=== PATIENT | female | born 1955 | race Caucasian/White ===

== ENCOUNTER 2019-02-04 15:47 | Emergency (ER) | payer MEDICARE, MEDICAID ==
[~2019-02-04] VITALS: Ht 167.6 cm; Wt 80.0 kg
[~2019-02-04 15:47] MED LIST: ATOM100C MT; BACL20TA MT; BUDE6HFA INH; CLON2TAB21 PO; FLONASE; IBUP-2030 PO; LASIX PO; LINA145C PO; LITH300C3 PO; METOPROLOL PO; ONDA4TAB5 MT; POLY15DR31 EACHEYE; PREG20SO PO; PROT40 MT; SERT100T MT
[2019-02-04 18:30] LABS: BASOPHILS % 0.6 % (0.0-2.0); EOSINOPHILS % 4.1 % (0.0-5.0); HEMATOCRIT. 30.3 % (36.0-48.0); HEMOGLOBIN. 10.4 g/dL (12.0-16.0); LYMPHOCYTES % 22.5 % (20.0-50.0); MEAN CORPUSCULAR HEMOGLOBIN 31.2 pg (28.0-32.0); MEAN CORPUSCULAR VOLUME 91.1 fL (81.0-99.0); MEAN PLATELET VOLUME 7.9 fl (7.4-10.4); MONOCYTES % 11.4 % (2.0-8.0); NEUTROPHILS % 61.4 % (40.0-76.0); PLATELET 243 x1000/uL (130-400); RED BLOOD CELL COUNT 3.32 mill/uL (4.2-5.4)
[2019-02-04 18:35] LABS: CHLORIDE 104 mEq/L (98-107)
[2019-02-04 18:40] LABS: ETHANOL BLOOD < 10 mg/dL
[2019-02-04] MEDS ORDERED: PANTOPRAZOLE 40MG DR TABLET PO ONE (20:15)
[2019-02-04] MEDS ORDERED: LORAZEPAM 1MG TABLET PO ONE (20:15)
[2019-02-04] MEDS: QUETIAPINE FUMARATE 50MG TABLET PO SCH ×2 (20:59→21:00)
[2019-02-04 21:49] LABS: CLARITY URINE CLOUDY (CLEAR); COLOR URINE YELLOW (YELLOW); KETONES URINE NEGATIVE (NEGATIVE); LEUKOCYTE ESTERASE URINE 3+ (NEGATIVE); NITRITE URINE NEGATIVE (NEGATIVE); OCCULT BLOOD URINE NEGATIVE (NEGATIVE); PROTEIN URINE NEGATIVE (NEGATIVE)
[2019-02-04 22:07] LABS: *AMPHETAMINES SCREEN URINE PRESUMTIVE POSITIVE (NEGATIVE); CANNABINOID URINE SCREEN NEGATIVE (NEGATIVE)
[2019-02-04 22:08] LABS: *BARBITURATES SCREEN URINE NEGATIVE (NEGATIVE); *BENZODIAZEPINES SCREEN URINE NEGATIVE (NEGATIVE); *COCAINE SCREEN URINE NEGATIVE (NEGATIVE); METHADONE URINE SCREEN NEGATIVE (NEGATIVE); OPIATES URINE SCREEN NEGATIVE (NEGATIVE)
[2019-02-04 22:38] LABS: PHENCYCLIDINE URINE SCREEN NEGATIVE (NEGATIVE)
[2019-02-05] MEDS ORDERED: CEFTRIAXONE SODIUM 1 G/VIAL IM ONE (00:15)
[2019-02-05] MEDS: LORAZEPAM 2MG/ML CPJ IM PRN ×3 (00:18→00:20)
[2019-02-05] MEDS ORDERED: LORAZEPAM 1MG TABLET PO ONE (10:30)
[2019-02-05] MEDS ORDERED: CLONAZEPAM 1MG TABLET PO NR (16:00)
[2019-02-05] MEDS ORDERED: PANTOPRAZOLE 40MG DR TABLET PO NR (16:00)
[2019-02-05] MEDS ORDERED: NICOTINE 7MG PATCH TD ONE (18:30)
[2019-02-05] MEDS ORDERED: MAGNESIUM/ALUMINUM HYDROXIDE/SIMETHICONE 30ML UDC PO ONE (18:30)
[2019-02-05] MEDS ORDERED: QUETIAPINE FUMARATE 50MG TABLET PO NR (23:30)
[2019-02-06] MEDS ORDERED: OLANZAPINE 10 MG/VIAL IM ONE (00:15)
[2019-02-06] MEDS ORDERED: LORAZEPAM 2MG/ML CPJ IM ONE (00:15)
[2019-02-06 09:30] VITALS: BP 110/65
[2019-02-06] MEDS ORDERED: LORAZEPAM 0.5MG TABLET PO ONE (10:00)
== END 2019-02-06 14:00 | disposition left against medical advice (07) ==
LOC: ER 15:47
DX: F15.229 Other stimulant dependence with intoxication, unspecified (principal); R45.851 Suicidal ideations; F29 Unspecified psychosis not due to a substance or known physiological condition; Z59.0 Homelessness; D64.9 Anemia, unspecified; F10.20 Alcohol dependence, uncomplicated; Y90.0 Blood alcohol level of less than 20 mg/100 ml; F31.9 Bipolar disorder, unspecified
CPT/HCPCS: 36415; 80053; 80305; 80320; 81003; 85025; 96372; 99284; J0696; J2060; G0480

== ENCOUNTER 2020-09-08 15:49 | Emergency (ER) | payer BC, MEDICAID ==
[~2020-09-08] VITALS: Ht 167.6 cm; Wt 64.0 kg
[2020-09-08] MEDS ORDERED: METHYLPREDNISOLONE SOD SUCC 125 MG/2 ML VIAL IV STA (16:43)
[2020-09-08] MEDS ORDERED: IPRATROPIUM BROMIDE (0.02%) 0.5MG/2.5ML NEB HHN STA (16:43)
[2020-09-08] MEDS ORDERED: ALBUTEROL (0.083%) 2.5MG/3ML NEB HHN STA (16:43)
[2020-09-08] MEDS ORDERED: LORAZEPAM 2MG/ML CPJ IV ONE ×2 (16:45→20:15)
[2020-09-08] MEDS ORDERED: SODIUM CHLORIDE 0.9% 1,000 ML IV ONE (16:45)
[2020-09-08] MEDS ORDERED: ASPIRIN 81MG TABLET PO ONE (16:45)
[2020-09-08] MEDS ORDERED: NITROGLYCERIN 0.4MG TABLET SL SL PRN (16:45)
[2020-09-08 17:20] LABS: *AMPHETAMINES SCREEN URINE PRESUMTIVE POSITIVE (NEGATIVE); *BARBITURATES SCREEN URINE NEGATIVE (NEGATIVE); *BENZODIAZEPINES SCREEN URINE NEGATIVE (NEGATIVE); *COCAINE SCREEN URINE NEGATIVE (NEGATIVE)
[2020-09-08 17:21] LABS: CANNABINOID URINE SCREEN NEGATIVE (NEGATIVE); METHADONE URINE SCREEN NEGATIVE (NEGATIVE); OPIATES URINE SCREEN PRESUMTIVE POSITIVE (NEGATIVE); PHENCYCLIDINE URINE SCREEN NEGATIVE (NEGATIVE)
[2020-09-08 17:51] LABS: BASOPHILS % 0.6 % (0.0-2.0); EOSINOPHILS % 4.6 % (0.0-5.0); HEMATOCRIT. 38.2 % (36.0-48.0); HEMOGLOBIN. 13.2 g/dL (12.0-16.0); MEAN CORPUSCULAR HEMOGLOBIN 32.6 pg (28.0-32.0); MEAN CORPUSCULAR VOLUME 94.5 fL (81.0-99.0); MEAN PLATELET VOLUME 8.4 fl (7.4-10.4); MONOCYTES % 9.8 % (2.0-8.0); PLATELET 156 x1000/uL (130-400); RED BLOOD CELL COUNT 4.05 mill/uL (4.2-5.4); RED CELL DISTRIBUTION WIDTH 14.6 % (11.6-14.6)
[2020-09-08 17:54] LABS: CHLORIDE 104 mEq/L (98-107)
[2020-09-08 17:58] LABS: ETHANOL BLOOD < 10 mg/dL; PARTIAL THROMBOPLASTIN TIME 26.6 sec (23.4-31.0); PROTHROMBIN TIME 10.3 sec (9.6-11.0)
[2020-09-08 20:30] VITALS: BP 160/85
== END 2020-09-08 20:30 | disposition left against medical advice (07) ==
LOC: ER 15:49
DX: J44.1 Chronic obstructive pulmonary disease with (acute) exacerbation (principal); F15.10 Other stimulant abuse, uncomplicated; F17.200 Nicotine dependence, unspecified, uncomplicated; I11.0 Hypertensive heart disease with heart failure; I50.9 Heart failure, unspecified; I48.91 Unspecified atrial fibrillation; R42 Dizziness and giddiness; Z88.9 Allergy status to unspecified drugs, medicaments and biological substances; Z88.2 Allergy status to sulfonamides; Z79.899 Other long term (current) drug therapy; Z86.59 Personal history of other mental and behavioral disorders
CPT/HCPCS: 36415; 71045; 80053; 80305; 80320; 83735; 83880; 84484; 85025; 85610; 85730; 93005; 96361; 96374; 96375; 99285; J2060; J2930; J7030; G0480